=== PATIENT | female | born 2000 | race African-American/Black ===

== ENCOUNTER 2024-12-20 10:01 | Emergency (ER) | payer BC ==
[~2024-12-20] VITALS: Ht 160 cm; Wt 69.9 kg
[2024-12-20 10:51] LABS: PLATELET COUNT (AUTO) 303 K/uL (150-450); RED BLOOD CELL COUNT(AUTO) 4.29 MIL/uL (4.0-5.2); RED CELL DISTRIBUTION WIDTH 16.2 % (11.5-15.0); WHITE BLOOD COUNT (AUTO) 8.6 K/uL (4.3-11.0)
[2024-12-20 11:08] VITALS: BP 121/76; TEMP 98.1; O2SAT 99
== END 2024-12-20 11:09 | disposition home or self-care (01) ==
LOC: ER 10:11
DX: O46.91 Antepartum hemorrhage, unspecified, first trimester (principal); R10.2 Pelvic and perineal pain; Z3A.13 13 weeks gestation of pregnancy
CPT/HCPCS: 36415; 76805-TC; 84702-TC; 84703-TC; 85025-TC